=== PATIENT | male | born 1980 | race Caucasian/White ===

== ENCOUNTER 2017-02-04 07:43 | Day surgery (SDC) | payer OTHER ==
[~2017-02-04] VITALS: Ht 175.3 cm; Wt 96.3 kg
[~2017-02-04 07:43] MED LIST: ONE DAILY FOR1 EACH PO
[2017-02-04 08:19] VITALS: BP 123/82
[2017-02-04] MEDS ORDERED: PERCOCET 5/31 TABLET PO (11:57)
[2017-02-04 12:10] VITALS: BP 152/80
[2017-02-04 13:22] VITALS: BP 127/81
== END 2017-02-04 13:37 | disposition home or self-care (01) ==
LOC: SDC 07:43
DX: D18.01 Hemangioma of skin and subcutaneous tissue (principal); E66.3 Overweight; Z68.31 Body mass index [BMI] 31.0-31.9, adult
CPT/HCPCS: 88305; J0690; J2250; J3010; S0020